=== PATIENT | female | born 1965 | race Caucasian/White ===

== ENCOUNTER 2019-03-15 15:15 | Emergency (ER) | payer BC ==
[2019-03-15] MEDS ORDERED: SODIUM CHLORIDE 0.9% 500 ML 500 ML IV STA (16:10)
--- NOTE | 2019-03-15 16:13 | ED ---
General Adult HPI - General Chief complaint: Recheck/Abnormal Lab/Rx Stated complaint: shaky/fever/chest heaviness Time Seen by Provider: 03/15/19 15:55 Source: patient Mode of arrival: wheelchair Limitations: no limitations - History of Present Illness Initial comments: Dictation was produced using [employer] dictation software. please excuse any grammatical, word or spelling errors. Chief Complaint: 53-year-old female with past medical history dyslipidemia, hypertension presents with suprapubic abdominal pain History of Present Illness: Patient is a 53-year-old female past 1 1 PM she had sudden onset suprapubic abdominal pain. She since the time of onset she's had constant suprapubic abdominal pain. Patient states she's been having normal bowel habits over the last 48 hours. Patient reports that pain is located to Denis pubic area is dull without any radiation to the back or laterally. Denies any nausea or vomiting. No vaginal discharge. She did report that she had some red colored stool yesterday. No fever, chills or night sweats. Over the past several weeks patient and her have been improving with her dietary habits in an attempt to be more physically healthy. She has had multiple abdominal surgeries. She does report that in years ago she may have had mesh placement in the uterus for dysfunctional uterine bleeding however she does not know any more details concerning this procedure. The ROS documented in this emergency department record has been reviewed and confirmed by me. Those systems with pertinent positive or negative responses have been documented in the HPI. All other systems are other negative and/or noncontributory. PHYSICAL EXAM: General Impression: Alert and oriented x3, not in acute distress HEENT: Normocephalic atraumatic, extra-ocular movements intact, pupils equal and reactive to light bilaterally, mucous membranes moist. Cardiovascular: Heart regular rate and rhythm, S1&S2 audible, no murmurs, rubs or gallops Chest: Lungs clear to auscultation bilaterally, no rhonchi, no wheeze, no rales Abdomen: Bowel sounds present, abdomen soft, tenderness to palpation over the midline suprapubic Musculoskeletal: Pulses present and equal in all extremities, no peripheral edema Motor: no focal deficits noted Neurological: CN II-XII grossly intact, no focal motor or sensory deficits noted Skin: Intact with no visualized rashes Psych: Normal affect and mood ED course: 53-year-old female chief complaint of abdominal pain. Laboratory evaluation obtained. Mild symptoms 11.6 however rest of CBC is unremarkable. Potassium 5.7 with slight hemolysis. Patient has mild gap acidosis with elevated BUN/creatinine ratio. Clinically patient stay hydrated labs suggest dehydration. Rest metabolic panel is unremarkable. Urinalysis positive for 2+ ketones and trace blood. Computed tomography scan of the abdomen and pelvis with contrast shows few sigmoid diverticula however otherwise negative exam. Patient reevaluated bedside found with stable medical condition. She states that her symptoms are slightly improved however not completely gone. No signs to suggest surgical abdomen at this time. Patient is well-appearing and in no acute distress. This point is unclear what patient's symptoms are from patient told to take Motrin, home and follow-up with her primary care physician for outpatient management of symptoms. Return parameters discussed. Patient clear for discharge. EKG interpretation: Ventricular rate 106, sinus tachycardia,. Interval 152, care is [address] prolongation, no QTC prolongation, no ST or T-wave changes noted. Overall, this EKG is unremarkable - Related Data Home Medications Medication Instructions Recorded Confirmed Atorvastatin Calcium [Lipitor] 10 mg PO HS 03/15/19 03/15/19 Lisinopril [Zestril] 10 mg PO DAILY 03/15/19 03/15/19 metFORMIN HCL [Glucophage] 500 mg PO BID 03/15/19 03/15/19 Allergies Allergy/AdvReac Type Severity Reaction Status Date / Time No Known Allergies Allergy Verified 03/15/19 16:35 Review of Systems ROS Statement: Those systems with pertinent positive or pertinent negative responses have been documented in the HPI. ROS Other: All systems not noted in ROS Statement are negative. Past Medical History Past Medical History: Diabetes Mellitus Additional Past Medical History / Comment(s): chronic neck pain History of Any Multi-Drug Resistant Organisms: None Reported Past Surgical History: Orthopedic Surgery Additional Past Surgical History / Comment(s): "tummy tuck" Past Psychological History: No Psychological Hx Reported Smoking Status: Never smoker Past Alcohol Use History: None Reported Past Drug Use History: None Reported General Exam Limitations: no limitations Course Vital Signs 03/15/19 15:40 Temperature 98.3 F Medical Decision Making - Lab Data Result diagrams: 03/15/19 16:41 03/15/19 16:41 Lab Results 03/15/19 03/15/19 03/15/19 Range/Units 16:41 16:41 16:41 WBC 11.6 H (3.8-10.6) k/uL RBC 4.78 (3.80-5.40) m/uL Hgb 13.8 (11.4-16.0) gm/dL Hct 41.2 (34.0-46.0) % MCV 86.1 (80.0-100.0) fL MCH 28.9 (25.0-35.0) pg MCHC 33.6 (31.0-37.0) g/dL RDW 14.4 (11.5-15.5) % Plt Count 187 (150-450) k/uL Neutrophils % 81 % Lymphocytes % 13 % Monocytes % 4 % Eosinophils % 2 % Basophils % 0 % Neutrophils # 9.4 H (1.3-7.7) k/uL Lymphocytes # 1.5 (1.0-4.8) k/uL Monocytes # 0.4 (0-1.0) k/uL Eosinophils # 0.2 (0-0.7) k/uL Basophils # 0.0 (0-0.2) k/uL Sodium 141 (137-145) mmol/L Potassium 5.7 H (3.5-5.1) mmol/L Chloride 109 H (98-107) mmol/L Carbon Dioxide 19 L (22-30) mmol/L Anion Gap 13 mmol/L BUN 20 H (7-17) mg/dL Creatinine 0.79 (0.52-1.04) mg/dL Est GFR (CKD-EPI)AfAm >90 (>60 ml/min/1.73 sqM) Est GFR (CKD-EPI)NonAf 87 (>60 ml/min/1.73 sqM) Glucose 135 H (74-99) mg/dL Calcium 10.1 (8.4-10.2) mg/dL Total Bilirubin 0.8 (0.2-1.3) mg/dL AST 39 H (14-36) U/L ALT <6 L (9-52) U/L Alkaline Phosphatase 76 (38-126) U/L Creatine Kinase 71 (30-135) U/L Total Protein 7.9 (6.3-8.2) g/dL Albumin 4.5 (3.5-5.0) g/dL Lipase 167 (23-300) U/L Urine Color Yellow Urine Appearance Clear (Clear) Urine pH 7.0 (5.0-8.0) Ur Specific [place] 1.018 (1.001-1.035) Urine Protein Negative (Negative) Urine Glucose (UA) Negative (Negative) Urine Ketones Trace H (Negative) Urine Blood Trace H (Negative) Urine Nitrite Negative (Negative) Urine Bilirubin Negative (Negative) Urine Urobilinogen <2.0 (<2.0) mg/dL Ur Leukocyte Esterase Negative (Negative) Urine RBC 1 (0-5) /hpf Urine WBC 3 (0-5) /hpf Ur Squamous Epith Cells 2 (0-4) /hpf Urine Bacteria Rare H (None) /hpf Urine Mucus Rare H (None) /hpf Disposition Clinical Impression: Abdominal pain Disposition: HOME SELF-CARE Condition: Good Instructions (If sedation given, give patient instructions): Abdominal Pain (ED) Is patient prescribed a controlled substance at d/c from ED?: No Referrals: Nonstaff,Physician [Primary Care Provider] - 1-2 days Time of Disposition: 19:00
[2019-03-15 16:56] LABS: Appearance,Urine Clear (Clear); Bacteria,Urine Rare /hpf; Bilirubin,Urine Negative (Negative); Blood,Urine Trace (Negative); Color,Urine Yellow; Glucose,Urine (UA) Negative (Negative); Ketones,Urine Trace (Negative); Leukocyte Esterase,Urine Negative (Negative); Mucus,Urine Rare /hpf; Nitrite,Urine Negative (Negative); Protein,Urine Negative (Negative); RBC,Urine 1 /hpf (0-5); Specific Gravity,Urine 1.018 (1.001-1.035); Squamous Epithelial Cell,Urine 2 /hpf (0-4); Urobilinogen,Urine <2.0 mg/dL (<2.0)
[2019-03-15 17:00] LABS: ALT <6 U/L (9-52); AST 39 U/L (14-36); Albumin 4.5 g/dL (3.5-5.0); Alkaline Phosphatase 76 U/L (38-126); Anion Gap 13 mmol/L; Blood Urea Nitrogen 20 mg/dL (7-17); Calcium 10.1 mg/dL (8.4-10.2); Carbon Dioxide 19 mmol/L (22-30); Chloride 109 mmol/L (98-107); Glucose 135 mg/dL (74-99); Sodium 141 mmol/L (137-145); Total Bilirubin 0.8 mg/dL (0.2-1.3); Total Protein 7.9 g/dL (6.3-8.2)
[2019-03-15 17:01] LABS: Creatine Kinase 71 U/L (30-135); Lipase 167 U/L (23-300)
[2019-03-15 17:02] LABS: Potassium 5.7 mmol/L (3.5-5.1)
[2019-03-15 17:06] LABS: Basophils % (A) 0 %; Eosinophils # (A) 0.2 k/uL (0-0.7); Eosinophils % (A) 2 %; HCT 41.2 % (34.0-46.0); HGB 13.8 gm/dL (11.4-16.0); Lymphocytes # (A) 1.5 k/uL (1.0-4.8); Lymphocytes % (A) 13 %; MCH 28.9 pg (25.0-35.0); MCHC 33.6 g/dL (31.0-37.0); MCV 86.1 fL (80.0-100.0); Mean Platelet Volume 8.7; Monocytes # (A) 0.4 k/uL (0-1.0); Monocytes % (A) 4 %; Neutrophils # (A) 9.4 k/uL (1.3-7.7); Neutrophils % (A) 81 %; Platelet Count 187 k/uL (150-450); RBC 4.78 m/uL (3.80-5.40); RDW 14.4 % (11.5-15.5); WBC 11.6 k/uL (3.8-10.6)
--- NOTE | 2019-03-15 18:45 | CT ---
EXAMINATION TYPE: CT abdomen pelvis w con DATE OF EXAM: 03/15/2019 COMPARISON: None HISTORY: BODY SHAKES. CT DLP: 1261.9 mGycm Automated exposure control for dose reduction was used. TECHNIQUE: Helical acquisition of images was performed from the lung bases through the pelvis. CONTRAST: Performed without Oral Contrast and with IV Contrast, patient injected with 100 mL of Isovue 300. FINDINGS: Lung bases are clear of infiltrate. There is no pleural effusion. Heart size is normal. Stomach is fa irly normal. There are small hiatal hernia. Liver spleen pancreas gallbladder appear normal. Bile mukund ts are not dilated. There is no adrenal mass. The kidneys show satisfactory contrast opacification. There is no hydroneph rosis. There is no retroperitoneal adenopathy. Bladder distends smoothly. There is no free fluid in the pelvis. Uterus is anteverted. I see no evide nce of a bowel obstruction. There is no intestinal wall thickening. Bony structures are intact. Bony pelvis intact. There is no inguinal hernia. There is no ascites. There is no free air. There is no mesenteric edema. Appendix appears normal. The re are a few sigmoid diverticula. IMPRESSION: THERE ARE A FEW SIGMOID DIVERTICULA. OTHERWISE NEGATIVE EXAM. NO ACUTE ABNORMALITY.
[2019-03-15 19:06] VITALS: BP 145/73; PULSE 89; RESP 18; TEMP 97.9
== END 2019-03-15 19:05 | disposition home or self-care (01) ==
LOC: EC 15:15
DX: R10.30 Lower abdominal pain, unspecified (principal); E87.5 Hyperkalemia; E87.2 Acidosis; R25.9 Unspecified abnormal involuntary movements; E11.9 Type 2 diabetes mellitus without complications; E78.5 Hyperlipidemia, unspecified; I10 Essential (primary) hypertension; Z98.890 Other specified postprocedural states; Z79.84 Long term (current) use of oral hypoglycemic drugs; Z79.899 Other long term (current) drug therapy
CPT/HCPCS: 99285; 36415; 93005; 80053; 82550; 83690; 85025; 81001; 74177; Q9967

== ENCOUNTER 2023-09-24 21:26 | Observation (INO) | payer BC ==
[2023-09-24] MEDS ORDERED: ASPIRIN 81 MG PO STA (21:43)
--- NOTE | 2023-09-24 21:56 | ED ---
Chest Pain HPI - General Chief Complaint: Chest Pain Stated Complaint: Chest Pain Time Seen by Provider: 09/24/23 21:43 Source: patient Mode of arrival: ambulatory Limitations: no limitations - History of Present Illness Initial Comments: 58 yo F with PMH of HTN, HLD, DM and family history of cardiac disease presents to the ER via private vehicle for evaluation of chest pain. Patient reports she developed some pressure-like pain in her chest earlier today she took some aspirin and some ibuprofen without improvement. Patient was hosting a family ge t together so she chose not to come to the ER at that time however symptoms persist that she had pain and pressure in her chest that radiated to her left shoulder as an aching pain down her left arm. Due to persistence of the symptoms after taking aspirin and ibuprofen she decided come the ER. Patient has no personal history of cardiac disease. She does have a strong family history both parents and her brother having coronary artery disease. Patient also reports that her sister has told her she had blood clots in the past but patient cannot confirm this. Patient personally never had a blood clots. - Related Data Home Medications Medication Instructions Recorded Confirmed Atorvastatin Calcium [Lipitor] 10 mg PO HS 03/15/19 03/15/19 lisinopriL [Zestril] 10 mg PO DAILY 03/15/19 03/15/19 metFORMIN HCL [Glucophage] 500 mg PO BID 03/15/19 03/15/19 Allergies Allergy/AdvReac Type Severity Reaction Status Date / Time No Known Allergies Allergy Verified 09/24/23 21:27 Review of Systems ROS Statement: Those systems with pertinent positive or pertinent negative responses have been documented in the HPI. ROS Other: All systems not noted in ROS Statement are negative. EKG Findings - EKG Comments: EKG Findings:: EKG interpreted by me, EKG obtained due to complaint of chest pain EKG obtained at 2136, rate is 96 rhythm is sinus, normal intervals NJ 160 QRS 80 QTc 377 there is no acute ST elevations or depressions are no evidence of acute ischemia or infarction. When this EKG was compared to EKG in 2019 there is no significant change in morphology. Past Medical History Past Medical History: Diabetes Mellitus, Hypertension Additional Past Medical History / Comment(s): chronic neck pain History of Any Multi-Drug Resistant Organisms: None Reported Past Surgical History: Orthopedic Surgery Additional Past Surgical History / Comment(s): "tummy tuck" Past Psychological History: No Psychological Hx Reported Smoking Status: Never smoker Past Alcohol Use History: None Reported Past Drug Use History: None Reported General Exam Limitations: no limitations General appearance: alert, in no apparent distress Head exam: Present: atraumatic Eye exam: Present: normal appearance ENT exam: Present: normal exam Respiratory exam: Present: normal lung sounds bilaterally. Absent: respiratory distress Cardiovascular Exam: Present: regular rate, normal rhythm GI/Abdominal exam: Present: soft. Absent: distended Rectal exam: Present: deferred Extremities exam: Present: normal inspection. Absent: pedal edema Back exam: Present: normal inspection Neurological exam: Present: alert, oriented X3 Psychiatric exam: Present: normal affect, normal mood Course Vital Signs 09/24/23 09/25/23 21:28 00:20 Temperature 98.5 F Pulse Rate 105 H 95 Respiratory 18 18 Rate Blood Pressure 123/82 116/79 O2 Sat by Pulse 99 96 Oximetry Chest Pain MDM - MDM Was pt. sent in by a medical professional or institution (, PA, CIRCULATION MAN, urgent care, hospital, or retirement...) When possible be specific @ -No Did you speak to anyone other than the patient for history (EMS, parent, family, police, friend...)? What history was obtained from this source @ -No Did you review nursing and triage notes (agree or disagree)? Why? @ -I reviewed and agree with nursing and triage notes Were old charts reviewed (outside hosp., previous admission, EMS record, old EKG, old radiological studies, urgent care reports/EKG's, retirement records)? Report findings @ -No old charts were reviewed Differential Diagnosis (chest pain, altered mental status, abdominal pain women, abdominal pain men, vaginal bleeding, weakness, fever, dyspnea, syncope, headache, dizziness, GI bleed, back pain, seizure, CVA, palpatations, mental health)? @ Differential Chest Pain: Stable Angina, Unstable Angina, STEMI, NSTEMI Aortic Dissection, Pneumothorax, Musculoskeletal, Esophageal Spasm GERD, Cholecystitis, Pancreatitis, Zoster, this is not meant to be an all-inclusive list. EKG interpreted by me (3pts min.). @ -As above X-rays interpreted by me (1pt min.). @ No widened mediastinum, no pneumothorax, no pneumonia CT interpreted by me (1pt min.). @ -No obvious dissection no large PE U/S interpreted by me (1pt. min.). @ -None done What testing was considered but not performed or refused? (CT, X-rays, U/S, labs)? Why? @ -Echocardiogram can be performed while admitted What meds were considered but not given or refused? Why? @ -None Did you discuss the management of the patient with other professionals (professionals i.e. Dr., PA, CIRCULATION MAN, lab, RT, psych nurse, secondary social studies teacher, alarm operator, teacher, chief technical officer, pillowcase maker)? Give summary @ -Admitting physician Dr. Ledezma Was smoking cessation discussed for >3mins.? @ -No Was critical care preformed (if so, how long)? @ -No Were there social determinants of health that impacted care today? How? (Homelessness, low income, unemployed, alcoholism, drug addiction, transportation, low edu. Level, literacy, decrease access to med. care, half-way, rehab)? @ -No Was there de-escalation of care discussed even if they declined (Discuss DNR or withdrawal of care, Hospice)? DNR status @ -No What co-morbidities impacted this encounter? (DM, HTN, Smoking, COPD, CAD, Cancer, CVA, ARF, Chemo, Hep., AIDS, mental health diagnosis, sleep apnea, morbid obesity)? @ -Hypertension, hyperlipidemia, diabetes Was patient admitted / discharged? Hospital course, mention meds given and route, prescriptions, significant lab abnormalities, going to OR and other pertinent info. @ -Admit The patient was seen and evaluated, history is obtained from the patient. Patient with multiple cardiac factors including hypertension, hyperlipidemia, diabetes, family history, age. HEART Score 4 Patient's EKG was nonischemic, chest x-ray was unremarkable, labs resulted with elevated d-dimer and a CT of the chest was performed, CTA results with no acute findings or COPD no dissection. Given the patient's multiple risk factors no previous history of cardiac disease no establish care with cherry grower I do not feel safe for the patient to be discharged home at this time, patient is agreeable to plan for observation, serial troponins and consultation with a cherry grower in the morning. Dr. Ledezma accepts the admission Undiagnosed new problem with uncertain prognosis? @ -No Drug Therapy requiring intensive monitoring for toxicity (Heparin, Nitro, Insulin, Cardizem)? @ -No Were any procedures done? @ -No Diagnosis/symptom? @ Chest Pain Acute, or Chronic, or Acute on Chronic? @ -Acute Uncomplicated (without systemic symptoms) or Complicated (systemic symptoms)? @ -default Side effects of treatment? @ -No Exacerbation, Progression, or Severe Exacerbation? @ -No Poses a threat to life or bodily function? How? (Chest pain, [place], [place], pneumonia, PE, COPD, DKA, ARF, appy, cholecystitis, CVA, Diverticulitis, Homicidal, Suicidal, threat to staff... and all critical care pts) @ -Yes Disposition Clinical Impression: Chest pain Disposition: ADMITTED IP TO THIS HOSP Condition: Stable Is patient prescribed a controlled substance at d/c from ED?: No Referrals: Nonstaff,Physician [REFERRING] - 1-2 days
[2023-09-24 22:07] LABS: Basophils % (A) 0 %; Eosinophils # (A) 0.2 k/uL (0-0.7); Eosinophils % (A) 2 %; HCT 40.2 % (34.0-46.0); HGB 13.2 gm/dL (11.4-16.0); Lymphocytes # (A) 1.9 k/uL (1.0-4.8); Lymphocytes % (A) 17 %; MCH 29.5 pg (25.0-35.0); MCV 89.6 fL (80.0-100.0); Mean Platelet Volume 8.7; Monocytes # (A) 0.4 k/uL (0-1.0); Monocytes % (A) 4 %; Neutrophils # (A) 8.5 k/uL (1.3-7.7); Neutrophils % (A) 76 %; Platelet Count 150 k/uL (150-450); RBC 4.48 m/uL (3.80-5.40); RDW 13.2 % (11.5-15.5); WBC 11.2 k/uL (3.8-10.6)
[2023-09-24 22:16] LABS: ALT 13 U/L (4-34); AST 26 U/L (14-36); African American GFR (CKD) 61 (>60 ml/min/1.73 sqM); Albumin 3.9 g/dL (3.5-5.0); Alkaline Phosphatase 76 U/L (38-126); Anion Gap 9 mmol/L; Blood Urea Nitrogen 28 mg/dL (7-17); Carbon Dioxide 25 mmol/L (22-30); Chloride 105 mmol/L (98-107); Glucose 110 mg/dL (74-99); Magnesium 1.9 mg/dL (1.6-2.3); Non-African American GFR(CKD) 53 (>60 ml/min/1.73 sqM); Potassium 3.9 mmol/L (3.5-5.1); Sodium 139 mmol/L (137-145); Total Bilirubin 0.5 mg/dL (0.2-1.3)
[2023-09-24 22:24] LABS: NT-Pro-B-Type Natriuretic Pept 100 pg/mL
[2023-09-24 22:27] LABS: INR 0.9 (<1.2); Prothrombin Time 9.8 sec (10.0-12.5)
[2023-09-24] MEDS ORDERED: SODIUM CHLORIDE 0.9% 1,000 ML IV ONE (22:32)
--- NOTE | 2023-09-24 22:54 | XR ---
EXAMINATION TYPE: XR chest 2V DATE OF EXAM: 09/24/2023 10:01 PM CLINICAL INDICATION:Female, 58 years old with history of Chest Pain; [facility] COMPARISON: None TECHNIQUE: XR chest 2V. Frontal PA and lateral views of the chest. FINDINGS: Lines/Tubes: EKG leads overlie the chest. No indwelling lines are seen. Heart/mediastinum: Cardiomediastinal silhouette is well defined. Heart size is normal. The aorta ap pears slightly tortuous, a finding usually associated with either atherosclerosis or systemic hyperte nsion. Pulmonary vascularity: Not increased, Lungs/Pleura: There is no evidence of pleural effusion, focal consolidation, or pneumothorax. Musculoskeletal: No acute osseous abnormality demonstrated in the limits of the exam. Mild degenerat manuela changes of the spine and shoulders. Other findings: Partially seen ACDF hardware in the lower cervical spine. IMPRESSION: No acute cardiopulmonary abnormality.
--- NOTE | 2023-09-24 23:47 | CT ---
EXAM: CT Angiography Chest With Intravenous Contrast CLINICAL HISTORY: ITS.REASON CT Reason: chest pain, elevated dimer TECHNIQUE: Axial computed tomographic angiography images of the chest with intravenous contrast. CTDI is 14.16 mGy and DLP is 413.3 mGy-cm. This CT exam was performed using one or more of the following dose reduction techniques: automated exposure control, adjustment of the mA and/or kV according to patient size, and/or use of iterative reconstruction technique. MIP reconstructed images were created and reviewed. COMPARISON: No relevant prior studies available. FINDINGS: Pulmonary arteries: Unremarkable. No pulmonary embolism. Aorta: No acute findings. No thoracic aortic aneurysm. Lungs: Unremarkable. No mass. No consolidation. Pleural space: Unremarkable. No significant effusion. No pneumothorax. Heart: Unremarkable. No cardiomegaly. No significant pericardial effusion. No evidence of RV dysfunction. Bones/joints: No acute fracture. No dislocation. Soft tissues: Unremarkable. Lymph nodes: Unremarkable. No enlarged lymph nodes. Liver: Hepatic steatosis. IMPRESSION: No acute findings in the visualized arteries of the chest.
[2023-09-25] MEDS ORDERED: MELATONIN 1 MG TAB PO SCH (00:15)
[2023-09-25] MEDS ORDERED: NITROGLYCERIN SL TABS 0.4 MG TAB SUBLINGUAL PRN (01:03)
[2023-09-25] MEDS ORDERED: ONDANSETRON 4 MG/2 ML VIAL IVP PRN (01:43)
[2023-09-25] MEDS ORDERED: MELATONIN 3 MG TABLET PO PRN (01:43)
[2023-09-25] MEDS ORDERED: ACETAMINOPHEN TAB 325 MG TAB PO PRN (01:43)
[2023-09-25] MEDS ORDERED: NALOXONE 0.4 MG/ML 1 ML VIAL IV PRN (01:43)
[2023-09-25] MEDS ORDERED: DEXTROSE 50% SYRINGE 50 ML IVP PRN ×2 (01:45)
--- NOTE | 2023-09-25 01:51 | P.HPIM ---
History of Present Illness H&P Date: 09/25/23 Chief Complaint: Chest pain 58-year-old female diabetes mellitus hypertension Patient coming in for 3 day history of chest pain she described it as left-sided pressure like extending into the neck the left shoulder left arm left forearm and into the left back it's constant pain for the past 3 days waxes and wanes usually around 6-8 out of 10 in severity sometimes she her fit bit Showing a heart rate of 130 She reports that chest pain is not precipitated by activity but can happen any time while she is active or resting at one point woke her up from sleep. Associated with some heavy breathing but denies any dizziness lightheadedness palpitations nausea vomiting or profuse sweating. She denies any tobacco smoking illicit drugs she has history of diabetes and hypertension she denies any cardiac history she had a stress test years ago was routine test and that w as negative never had a heart attack or stroke She does not take aspirin at home no recent travel no history of blood clots denies any hemoptysis She does report chronic occasional cough this been going on for over a month nonproductive but Otherwise denies any runny nose sore throat symptoms fevers chills changes in bowel or urinary habits Denies tobacco smoking illicit drugs or heavy alcohol Positive history of cardiac disease in her family usually when they're around their 50s. Review of systems review of systems Pertinent positives as noted in HPI. All other systems were reviewed and are negative on exam Constitutional: No acute distress, conversant, pleasant Eyes: Anicteric sclerae, moist conjunctiva, Pupils equal round reactive to light ENMT: NC/AT Oropharynx clear, no erythema, or exudates Neck: Supple, no masses, or JVD No carotid bruits No thyromegaly Lungs: Clear to auscultation Clear to percussion Normal respiratory effort, no accessory muscle use Cardiovascular: Heart regular in rate and rhythm, No murmurs, gallops, or rubs No peripheral edema Abdominal: Soft Nontender, no guarding, rebound or rigidity Abdomen moving with respiration Normoactive bowel sounds No hepatomegaly, No splenomegaly No palpable mass No abdominal wall hernia noted Skin: Normal temperature, tone, texture, turgor No induration No subcutaneous nodules No rash, lesions No ulcers Extremities: No digital cyanosis No clubbing Pedal pulses intact and symmetrical Radial pulses intact and symmetrical No calf tenderness Psychiatric: Alert and oriented to person, place and time Appropriate affect fair judgement Neuro Muscles Strength 5/5 in all 4 extremities Sensation to light touch grossly present throughout Cranial nerves II-XII grossly intact Lymphatics: no palpable cervical or supraclavicular lymph nodes Past Medical History Past Medical History: Diabetes Mellitus, Hypertension Additional Past Medical History / Comment(s): chronic neck pain History of Any Multi-Drug Resistant Organisms: None Reported Past Surgical History: Orthopedic Surgery Additional Past Surgical History / Comment(s): "tummy tuck" Past Psychological History: No Psychological Hx Reported Smoking Status: Never smoker Past Alcohol Use History: None Reported Past Drug Use History: None Reported Medications and Allergies Home Medications Medication Instructions Recorded Confirmed Type Atorvastatin Calcium [Lipitor] 10 mg PO HS 03/15/19 03/15/19 History lisinopriL [Zestril] 10 mg PO DAILY 03/15/19 03/15/19 History metFORMIN HCL [Glucophage] 500 mg PO BID 03/15/19 03/15/19 History Allergies Allergy/AdvReac Type Severity Reaction Status Date / Time No Known Allergies Allergy Verified 09/24/23 21:27 Physical Exam Vitals: Vital Signs Temp Pulse Resp BP Pulse Ox 09/25/23 01:16 85 09/25/23 00:20 95 18 116/79 96 09/24/23 21:28 98.5 F 105 H 18 123/82 99 Intake and Output 09/24/23 09/24/23 09/25/23 14:59 22:59 06:59 Other: Weight 68.039 kg Results CBC & Chem 7: 09/24/23 21:48 09/24/23 21:48 Labs: Abnormal Lab Results - Last 24 Hours (Table) 09/24/23 09/24/23 09/24/23 Range/Units 21:48 21:48 21:48 WBC 11.2 H (3.8-10.6) k/uL Neutrophils # 8.5 H (1.3-7.7) k/uL PT 9.8 L (10.0-12.5) sec D-Dimer 1.14 H (<0.60) mg/L FEU BUN 28 H (7-17) mg/dL Creatinine 1.15 H (0.52-1.04) mg/dL Glucose 110 H (74-99) mg/dL Assessment and Plan Assessment: 58-year-old female diabetes mellitus hypertension nonsmoker with family history of cardiac disease in their 50s. Coming in for chest pain for past 3 days I discussed the case with the ED doctor I accepted the admission for atypical chest pain to rule out acute coronary syndrome with anticipated length of stay less than 2 midnights Atypical chest pain Cardiology consult Troponins negative continue to trend EKG no acute ST changes Chest x-ray no acute pathology D-dimer was elevated 1.14 CT angiogram the chest no acute PE no other acute pathology Continue with aspirin and statin Trend troponins Cardiac monitoring Check lipid panel IV fluid hydration normal saline 100 mL per hour Hypertension Resume lisinopril Diabetes mellitus Hold oral hypoglycemic agents Insulin sliding scale Blood work overall unremarkable White count 11.2 hemoglobin 13.2 Renal function sodium 139 potassium 3.9 BUN 20 creatinine 1.15 Full code DVT prophylaxis up and subcu 3 times a day
[2023-09-25] MEDS: SODIUM CHLORIDE 0.9% 1,000 ML IV SCH ×2 (01:59→12:07)
[2023-09-25] MEDS ORDERED: ALPRAZolam 0.25 MG TAB PO PRN (02:00)
[2023-09-25 02:42] LABS: Glucose,Whole Blood 106 mg/dL (70-110)
[2023-09-25 08:47] LABS: Glucose,Whole Blood 99 mg/dL (70-110)
[2023-09-25] MEDS: INSULIN ASPART (NovoLOG) 100 UNIT/ML VIAL SQ SCH ×2 (08:50→12:07)
[2023-09-25] MEDS ORDERED: lisinopriL 10 MG TAB PO SCH (09:00)
[2023-09-25 12:03] LABS: Glucose,Whole Blood 77 mg/dL (70-110)
[2023-09-25 15:33] VITALS: BP 122/82; PULSE 77; RESP 16; TEMP 98.1
--- NOTE | 2023-09-25 17:30 | P.PN ---
Subjective Progress Note Date: 09/25/23 Hospital course: Patient is a very pleasant 58-year-old female with a past medical history of hypertension and diabetes mellitus. She presented to the emergency department with a chief complaint of chest pain radiating into her neck and left arm 3 days. She underwent full evaluation in the emergency department. Vital signs reviewed showing blood pressure 123/82, heart rate 105, respiratory rate 18, temp 98.5F, SpO2 of 99% on room air. EKG completed showing normal sinus rhythm and 96 bpm with no noted T-wave or ST abnormality showing no signs of acute ischemia. Chest x-ray negative for acute cardiopulmonary process. Labs completed and reviewed. CBC showing leukocytosis with WBC count of 11.2. BMP showing slight elevation of renal function with EF of 28, creatinine 1.15 and GFR 53. Magnesium normal findings at 1.9. Liver profile normal findings. Troponin less than 0.012. D-dimer was elevated at 1.14. CTA was negative for acute process ruling out PE. Patient was admitted under services of consultation cardiology. Troponins trended or nail negative at less than 0.0123 draws. Physical exam: Vital signs reviewed and stable. General: Nontoxic, no distress and appears stated age. Derm: Skin warm and dry, normal coloration for ethnicity. Head: Atraumatic, normocephalic and symmetric. Eyes: EOMs intact, no lid lag, and anicteric sclera Mouth: no lip lesions, mucus membranes moist Cardiovascular: regular rate and rhythm with normal S1S2, no murmur, positive posterior tibial pulses bilaterally, and cap refill < 2 seconds. Lungs: Respirations even, regular, and unlabored on room air. Lungs CTA bilaterally, no rhonchi, no rales, no wheezing, and no accessory muscle usage. Abdominal: soft, nontender to palpation, no guarding, no appreciable o rganomegaly Ext: ROM intact. No gross muscle atrophy, no edema, no contractures Neuro: Speech clear, face symmetrical and CN II-XII grossly intact with no noted focal neuro deficits Psych: Alert and oriented to person, place, time, and situation. Appropriate and pleasant affect. Assessment and Plan of Care: Chest pain, rule out acute coronary event Hypertension Hyperlipidemia -Cardiology consult, appreciate further recommendations -Telemetry monitoring -Cardiac diet, NPO at midnight -Aspirin, atorvastatin, and metoprolol -Lipid profile with a.m. labs. -Echocardiogram -Continue daily medication regimen with lisinopril 10 mg daily and atorvastatin 10 mg nightly. Ffp-[id number]-padwtwjda diabetes mellitus Patient placed on glycemic protocol with NovoLog sliding scale. Date and imaging reviewed: -Vital signs reviewed showing blood pressure 123/82, heart rate 105, respiratory rate 18, temp 98.5F, SpO2 of 99% on room air. -EKG completed showing normal sinus rhythm and 96 bpm with no noted T-wave or ST abnormality showing no signs of acute ischemia. -Chest x-ray negative for acute cardiopulmonary process. -Labs completed and reviewed. CBC showing leukocytosis with WBC count of 11.2. BMP showing slight elevation of renal function with EF of 28, creatinine 1.15 and GFR 53. Magnesium normal findings at 1.9. Liver profile normal findings. Troponin less than 0.012. D-dimer was elevated at 1.14. Troponins trended or nail negative at less than 0.0123 draws. -CTA negative for acute process ruling out PE. CODE STATUS: Full code DVT prophylaxis: Lovenox Anticipated discharge date: 24-[address]: Home Patient was seen independently by Nurse Pracitioner. This document was prepared using [employer] dictation software. Please allow for errors in video game creator, while rare they do occur. Denis Ralph NP rendered care for this patient independently, reviewed the findings and plan as documented in the note above. I did not physically speak with or examine the patient on this date. Objective - Vital Signs Vital signs: Vital Signs Temp 98.5 F 09/24/23 21:28 Pulse 80 09/25/23 06:09 Resp 19 09/25/23 06:09 BP 113/80 09/25/23 06:09 Pulse Ox 99 09/25/23 06:09 FiO2 Intake & Output 09/24/23 09/25/23 09/25/23 18:59 06:59 18:59 Weight 68.039 kg - Labs CBC & Chem 7: 09/24/23 21:48 09/24/23 21:48 Labs: Abnormal Lab Results - Last 24 Hours (Table) 09/24/23 09/24/23 09/24/23 Range/Units 21:48 21:48 21:48 WBC 11.2 H (3.8-10.6) k/uL Neutrophils # 8.5 H (1.3-7.7) k/uL PT 9.8 L (10.0-12.5) sec D-Dimer 1.14 H (<0.60) mg/L FEU BUN 28 H (7-17) mg/dL Creatinine 1.15 H (0.52-1.04) mg/dL Glucose 110 H (74-99) mg/dL
--- NOTE | 2023-09-25 17:57 | P.DS ---
Providers Date of admission: 09/25/23 01:03 Expected date of discharge: 09/25/23 Attending physician: Kar Lundy MD Consults: 09/25/23 01:03 Consult Physician Urgent Consulting Provider: Willian Garcia Consult Reason/Comments: chest pain Do you want consulting provider notified?: Yes, Notify in am Primary care physician: [facility] Course: This is not a discharge summary but a summary of care as I was notified that patient left AGAINST MEDICAL ADVICE on 09/25/23 5:42 PM. Chest pain, rule out acute coronary event Hypertension Hyperlipidemia Hospital Course: Patient is a very pleasant 58-year-old female with a past medical history of hypertension and diabetes mellitus. She presented to the emergency department with a chief complaint of chest pain radiating into her neck and left arm 3 days. She underwent full evaluation in the emergency department. Vital signs reviewed showing blood pressure 123/82, heart rate 105, respiratory rate 18, temp 98.5F, SpO2 of 99% on room air. EKG completed showing normal sinus rhythm and 96 bpm with no noted T-wave or ST abnormality showing no signs of acute ischemia. Chest x-ray negative for acute cardiopulmonary process. Labs completed and reviewed. CBC showing leukocytosis with WBC count of 11.2. BMP showing slight elevation of renal function with EF of 28, creatinine 1.15 and GFR 53. Magnesium normal findings at 1.9. Liver profile normal findings. Troponin less than 0.012. D-dimer was elevated at 1.14. CTA was negative for acute process ruling out PE. Patient was admitted under services of consultation cardiology. Troponins trended or nail negative at less than 0.0123 draws. Per RN patient was very upset regarding wait time in the emergency department for a bed on unit in length of time she has been in the hospital without being discharged. Patient very adamant that she is leaving regardless if she is discharged or not. Was notified by RN that the patient left AGAINST MEDICAL ADVICE on 09/25/23 at 5:42 PM.. Unable to discharge patient at this time as she has not been cleared by cardiology. RN reports that Patient was strongly encouraged to follow up outpatient with security agent. Patient was seen independently by Nurse Practitioner. This document was prepared using [employer] dictation software. Please allow for errors in [employer] mixer operator while rare they do occur. Denis Ralph NP rendered care for this patient independently, reviewed the findings and plan as documented in the note above. I did not physically speak with or examine the patient on this date. Patient Condition at Discharge: Stable Plan - Discharge Summary Discharge Rx Participant: No New Discharge Prescriptions: No Action lisinopriL [Zestril] 2.5 mg PO HS Semaglutide [Rybelsus] 14 mg PO DAILY Rosuvastatin [Crestor] 10 mg PO HS Discharge Medication List Rosuvastatin [Crestor] 10 mg PO HS 09/25/23 [History] Semaglutide [Rybelsus] 14 mg PO DAILY 09/25/23 [History] lisinopriL [Zestril] 2.5 mg PO HS 09/25/23 [History] Follow up Appointment(s)/Referral(s): Nonstaff,Physician [REFERRING] - 1-2 days Discharge Disposition: LEFT AGAINST MEDICAL ADVICE
[2023-09-25] MEDS ORDERED: ATORVASTATIN 10 MG TAB PO SCH (21:00)
[2023-09-26] MEDS ORDERED: ASPIRIN 325 MG TAB PO SCH (09:00)
[2023-09-26] MEDS ORDERED: ENOXAPARIN 40 MG/0.4 ML SYRINGE SQ SCH (09:00)
== END 2023-09-25 17:40 | disposition left against medical advice (07) ==
LOC: EC 21:26 → 6NMEDSUR 09-25 01:03
PROVIDERS: ADMIT Internal Medicine; ATTEND Internal Medicine
DX: R07.89 Other chest pain (principal); R79.89 Other specified abnormal findings of blood chemistry; D72.829 Elevated white blood cell count, unspecified; M79.602 Pain in left arm; M25.512 Pain in left shoulder; R05.9 Cough, unspecified; Z53.29 Procedure and treatment not carried out because of patient's decision for other reasons; I10 Essential (primary) hypertension; E11.9 Type 2 diabetes mellitus without complications; G89.29 Other chronic pain; M54.2 Cervicalgia; E78.5 Hyperlipidemia, unspecified; Z79.84 Long term (current) use of oral hypoglycemic drugs; Z79.899 Other long term (current) drug therapy; Z98.890 Other specified postprocedural states; Z82.49 Family history of ischemic heart disease and other diseases of the circulatory system
CPT/HCPCS: 99285; 36415; 93005; 85379; 83880; 80053; 83735; 84484 ×2; 85025; 85610; 85730; 71046; 71275; G0378; Q9967